=== PATIENT | female | born 1995 | race African-American/Black ===

== ENCOUNTER 2023-02-24 03:28 | Emergency (ER) | payer MEDICAID, OTHER ==
[~2023-02-24] VITALS: Ht 172.7 cm; Wt 80.0 kg
[2023-02-24 03:34] VITALS: O2SAT 98
[2023-02-24 04:05] LABS: HEMATOCRIT 43.7 % (36.0-48.0); HEMOGLOBIN 14.5 g/dL (12.0-16.0); MEAN CORPUSCULAR HEMOGLOBIN 29.5 pg (28.0-32.0); MEAN CORPUSCULAR HGB CONC 33.2 g/dL (31.0-37.0); MEAN CORPUSCULAR VOLUME 88.9 fL (81.0-99.0); PLATELET 327 x1000/uL (130-400); RED BLOOD CELL COUNT 4.92 mill/uL (4.2-5.4); RED CELL DISTRIBUTION WIDTH 13.4 % (11.6-14.6); WHITE BLOOD COUNT 18.3 x1000/uL (4.5-11.0)
[2023-02-24 04:12] LABS: CHLORIDE 103 mEq/L (98-107); INDEX HEMOLYSI 1 (1-3); INDEX ICTERIC 1 (1-4); INDEX LIPEMIC 1 (1-3); POTASSIUM 3.4 mEq/L (3.5-5.1); SODIUM 136 mEq/L (136-145)
[2023-02-24 04:20] LABS: ALANINE AMINOTRANSFERASE 18 IU/L (13-61); ALBUMIN 3.7 g/dL (3.4-5.0); ASPARTATE AMINOTRANSFERASE 12 IU/L (15-37); BILIRUBIN TOTAL 0.2 mg/dL (0.1-1.0); CALCIUM 8.9 mg/dL (8.5-10.1); CARBON DIOXIDE 26 mEq/L (21-32); CREATININE 0.7 mg/dL (0.6-1.3); GLUCOSE 210 mg/dL (70-105); PROTEIN TOTAL 7.8 g/dL (6.0-8.3); UREA NITROGEN BLOOD 16 mg/dL (7-21)
[2023-02-24] MEDS ORDERED: ACETAMINOPHEN 325MG TABLET PO ONE (05:30)
[2023-02-24 06:00] LABS: TROPONIN I HIGH SENSITIVITY < 4 ng/L (<54)
[2023-02-24 06:38] LABS: HCG SCREEN NEGATIVE
[2023-02-24 09:00] LABS: CLARITY URINE CLEAR (CLEAR); COLOR URINE YELLOW (YELLOW); GLUCOSE URINE TRACE (NEGATIVE); KETONES URINE NEGATIVE (NEGATIVE); LEUKOCYTE ESTERASE URINE NEGATIVE (NEGATIVE); NITRITE URINE NEGATIVE (NEGATIVE); OCCULT BLOOD URINE TRACE (NEGATIVE); PH URINE 5.5 (4.5-8.0); PROTEIN URINE NEGATIVE (NEGATIVE); SPECIFIC GRAVITY URINE 1.028 (1.005-1.030); UROBILINOGEN URINE 0.2 E.U./dL (0.2-1.0)
[2023-02-24] MEDS ORDERED: KETOROLAC 30MG/ML VIAL IV ONE (09:00)
[2023-02-24 09:03] LABS: BACTERIA URINE 1+; SQUAMOUS EPITHELIAL CELL URINE 1+ /lpf (RARE/1+); WBC URINE 0-2 /hpf (0-2); YEAST URINE NONE SEEN
[2023-02-24 09:21] LABS: *BARBITURATES SCREEN URINE NEGATIVE (NEGATIVE); *BENZODIAZEPINES SCREEN URINE NEGATIVE (NEGATIVE); *COCAINE SCREEN URINE NEGATIVE (NEGATIVE); CANNABINOID URINE SCREEN NEGATIVE (NEGATIVE); METHADONE URINE SCREEN NEGATIVE (NEGATIVE); OPIATES URINE SCREEN NEGATIVE (NEGATIVE); PHENCYCLIDINE URINE SCREEN NEGATIVE (NEGATIVE)
[2023-02-24 09:23] LABS: RBC URINE 0-2 /hpf (0-2)
[2023-02-24 09:42] LABS: *AMPHETAMINES SCREEN URINE PRESUMTIVE POSITIVE (NEGATIVE); ECSTASY MDMA SCREEN URINE CONF.TEST INDICATED (NEGATIVE)
[2023-02-24] MEDS ORDERED: AZITHROMYCIN 500 MG TABLET PO SCH (11:30)
[2023-02-24] MEDS ORDERED: DOXY100C5 MT (11:30)
[2023-02-24] MEDS ORDERED: TOPUD MT (11:30)
[2023-02-24] MEDS ORDERED: IBUP-1525 MT (11:30)
[2023-02-24] MEDS ORDERED: AZITHROMYCIN 500 MG TABLET PO NR (11:45)
[2023-02-24 12:33] VITALS: BP 124/78; PULSE 81; RESP 18; TEMP 98.6
== END 2023-02-24 12:35 | disposition home or self-care (01) ==
LOC: ER 03:28
DX: R10.84 Generalized abdominal pain (principal); E11.9 Type 2 diabetes mellitus without complications; F15.10 Other stimulant abuse, uncomplicated
CPT/HCPCS: 80053; 80305; 81003; 84703; 83690; 85027; 84484; 36415; 74176; 93005; 99284; J1885; Z7610 ×2